=== PATIENT | female | born 1985 | race African-American/Black ===

== ENCOUNTER → 2016-10-28 | Day surgery (SDC) | payer OTHER ==
[~2016-10-28] VITALS: Ht 170.2 cm; Wt 133.8 kg
[2016-10-28] VITALS (8 sets, daily range): BP systolic 101–130; BP diastolic 50–72
[~2016-10-28] MED LIST: LR 1000ml ONE; Lidocaine 1% MPF 10mg/ml 5ml ONE; Propofol 10mg/ml 20ml IV ONE; VITAMIN D400 INTLU ORAL
--- NOTE | 2016-10-28 11:02 | Pre-Procedure Note/Attestation ---
Pre-Procedure Note/Attestation Complete Prior to Procedure Planned Procedure: not applicable Procedure Narrative: GERD Indications for Procedure Pre-Operative Diagnosis: r/o GERD, HH Attestation I attest that I discussed the nature of the procedure; its benefits; risks and complications; and alternatives (and the risks and benefits of such alternatives ), prior to the procedure, with the patient (or the patient's legal financial services representative). I attest that, if there was a reasonable possibility of needing a blood transfusion, the patient (or the patient's legal financial services representative) was given the [facility] standardized written summary, pursuant to the [place] Blood Safety Act ([place] Health and Safety Code # 1645, as amended). I attest that I re-evaluated the patient just prior to the surgery and that there has been no change in the patient's H&P, except as documented below: KIMBERLY ADEN Oct 28, 2016 11:02
--- NOTE | 2016-10-28 11:03 | Short Stay Surgery H&P ---
History of Present Illness History of Present Illness Chief Complaint see typed H&P HPI Marisela Kwong is a 30 year old female who was admitted on for GERD Patient History Allergies: Coded Allergies: No Known Allergies (Unverified , 10/28/16) PAST MEDICAL HISTORY: Past Surgeries: Social History: Medication History Scheduled Vitamin D (Vitamin D3), 5,000 UNITS ORAL DAILY, (Reported) Physical Exam Labs Laboratory Tests Test 10/28/16 10:35 Urine HCG, Qualitative Pending Plan Attestation Are the patient's medical conditions optimized for surgery? KIMBERLY ADEN Oct 28, 2016 11:03
--- NOTE | 2016-10-28 11:14 | Endoscopy Procedure Note ---
Endoscopy Procedure Note Indication for Procedure: r/o GERD and gastritis Procedures Performed: EGD Operative Findings/Diagnosis: mild proximal gastritis Specimen: yes Pt Tolerated Procedure Well: Yes Estimated Blood Loss: none Anesthesia: MAC Medication Given: see anesthesia record Implant(s) used?: No 50 yrs or older w/o bx or poly: Not Applicable 10yrs. F/U not recommended: Not Applicable If not recommended, why?: KIMBERLY ADEN Oct 28, 2016 11:14
--- NOTE | 2016-10-28 11:15 | Pre-Procedure Note/Attestation ---
Pre-Procedure Note/Attestation Complete Prior to Procedure Planned Procedure: not applicable Procedure Narrative: EGD/Bx Indications for Procedure Pre-Operative Diagnosis: mild proximal gastritis - biopsied Attestation I attest that I discussed the nature of the procedure; its benefits; risks and complications; and alternatives (and the risks and benefits of such alternatives ), prior to the procedure, with the patient (or the patient's legal policy services representative). I attest that, if there was a reasonable possibility of needing a blood transfusion, the patient (or the patient's legal policy services representative) was given the [facility] standardized written summary, pursuant to the [place] Blood Safety Act ([place] Health and Safety Code # 1645, as amended). I attest that I re-evaluated the patient just prior to the surgery and that there has been no change in the patient's H&P, except as documented below: KIMBERLY ADEN Oct 28, 2016 11:15
--- NOTE | 2016-10-28 11:26 | Immediate Post-Op Evaluation ---
Immediate Post-Op Evalulation Immediate Post-Op Evalulation Procedure: EGD Date of Evaluation: Oct 28, 2016 Time of Evaluation: 11:25 Blood Pressure Systolic: 130 Blood Pressure Diastolic: 66 Pulse Rate: 70 Respiratory Rate: 14 O2 Sat by Pulse Oximetry: 99 Temperature (Fahrenheit): 97.5 Patient Status: awake, reacts, patent Hydration Status: adequate Drug: none SCOTT HAMPTON CRNA Oct 28, 2016 11:26
--- NOTE | 2016-10-28 11:28 | Anethesia Preoperative Eval ---
Anesthesia Pre-op PMH/ROS General Date of Evaluation: Oct 28, 2016 Time of Evaluation: 11:00 Anesthesiologist: miguel ASA Score: ASA 3 Mallampati Score Class I : Soft palate, uvula, fauces, pillars visible Class II: Soft palate, uvula, fauces visible Class III: Soft palate, base of uvula visible Class IV: Only hard plate visible Mallampati Classification: Class III Surgeon: elia Diagnosis: GERD Surgical Procedure: EGD Anesthesia History: none Family History: no anesthesia problems Allergies: Coded Allergies: No Known Allergies (Unverified , 10/28/16) Medications: see eMAR Past Medical History Gastrointestinal/Genitourinary: Reports: GERD Neurologic/Psychiatric: Denies: CVA, TIA, dementia, depression/anxiety, other Endocrine: Denies: DM, hypothyroidism, other, steroids HEENT: Denies: [place] (L), [place] (R), cataract (L), cataract (R), glaucoma, other Hematology/Immune: Denies: DVT, anemia, bleeding disorder, other Musculoskeletal/Integumentary: Denies: DDD, DJD, OA, RA, edema, other Other: obesity - super morbid PSxH Narrative: tonsillectomy Anesthesia Pre-op Phys. Exam Physician Exam Last Vital Signs Date Time Temp Pulse Resp B/P Pulse Ox O2 Delivery O2 Flow Rate FiO2 10/28/16 10:59 97.8 79 20 104/67 100 Room Air Constitutional: NAD Neurologic: CN 2-12 intact Cardiovascular: RRR Respiratory: CTA Gastrointestinal: S/NT/ND Airway Exam Mallampati Score: Class III MO: full Neck: thick ROM: full Dentures: no lower, no upper Anesthesia Pre-op A/P Labs Urine Test Test 10/28/16 10:35 Urine HCG, Qualitative Negative Studies Pre-op Studies: EKG - sr Risk Assessment & Plan Plan: mac Status Change Before Surgery: No Pre-Antibiotics Drug: none SCOTT HAMPTON CRNA Oct 28, 2016 11:28
--- NOTE | 2016-10-28 12:40 | 48 Hour Post Anesthesia Eval ---
Post Anesthesia Evaluation Procedure: EGD Date of Evaluation: Oct 28, 2016 Time of Evaluation: 12:39 Blood Pressure Systolic: 125 0: 50 Pulse Rate: 70 Respiratory Rate: 14 O2 Sat by Pulse Oximetry: 99 Airway: patent Nausea: No Vomiting: No Hydration Status: adequate Mental Status/LOC: patient returned to baseline Post-Anesthesia Complications: none Follow-up care needed: N/A SCOTT HAMPTON CRNA Oct 28, 2016 12:40
--- NOTE | 2016-10-28 23:38 | Operative Note - Dictated ---
DATE OF OPERATION: 10/28/2016 GASTROLOGY PROCEDURE NOTE PROCEDURE: Upper gastroendoscopy with biopsy. SURGEON: Aziza Napoles M.D. ANESTHESIA: Please see the separate anesthesiologist notes for details. PRE-ENDOSCOPIC DIAGNOSIS: Preoperative evaluation for bariatric surgery to rule out reflux and gastritis. POST-ENDOSCOPIC DIAGNOSIS: Mild proximal gastritis status post biopsy. DESCRIPTION OF PROCEDURE: The procedure, its risks, benefits, alternatives and possible complications were explained to the patient. Informed consent was obtained. The patient was then sedated and a diagnostic upper endoscope was introduced through the oropharynx and advanced to the duodenum. The endoscope was then gradually withdrawn. The mucosa was examined carefully. Examination of the mucosa revealed mild proximal gastropathy, which was biopsied and biopsies were sent to pathology for review. The remainder of the examination was unremarkable. The endoscope was removed and the patient was sent to recovery in good condition. COMPLICATIONS: None. RECOMMENDATIONS: 1. Follow up biopsy results. 2. Check and treat Helicobacter pylori if positive. 3. Outpatient followup. Aziza Napoles M.D. DR: DEEPAK JOB#: [id number] CC:
== END | disposition home or self-care (01) ==
LOC: GAS 10:18
DX: Z01.818 Encounter for other preprocedural examination (principal); E66.01 Morbid (severe) obesity due to excess calories; Z68.42 Body mass index [BMI] 45.0-49.9, adult; K29.50 Unspecified chronic gastritis without bleeding; K31.9 Disease of stomach and duodenum, unspecified; R06.83 Snoring; E55.9 Vitamin D deficiency, unspecified
CPT/HCPCS: 43239; 81025; J2704; J7120; 94003; 94150